=== PATIENT | female | born 1990 | race Caucasian/White ===

== ENCOUNTER 2018-04-13 15:27 | Outpatient (REF) | payer MEDICAID, SELFPAY ==
--- NOTE | 2018-04-13 15:45 | PAPFT_PTH ---
PATIENT: Geno Turner LOC: [facility] U#:[id number] AGE/SX: 27/F ROOM: RE04/13/[address]: Elda Gilman : 1990 BED: DIS: 04/13/2018 SPEC #: [id number] RECD: 04/14/18 12:50 STATUS: KARTIK REJody #: [id number] LAURO: 04/13/18 15:[address]: Elda Gilman DEPT: [facility], [facility] Cytology RECD BY: Alma Wallis Tissues: 1 - CX/ENDOCX FOR PAP SMEARS Procedures: PAP THIN PREP/UVM Screening Comments: [id number]
== END 2018-04-13 15:47 ==
LOC: NCHCN 15:27
PROVIDERS: PCP Nurse Practitioner Family; Visit Provider Nurse Practitioner Family
DX: Z12.4 Encounter for screening for malignant neoplasm of cervix (principal)
CPT/HCPCS: 88142

== ENCOUNTER 2018-06-22 21:21 | Outpatient (REF) | payer MEDICAID, SELFPAY ==
[2018-06-22 22:03] LABS: Abs Immature Grans 0.02 k/cumm (0.0-0.09); Absolute Basophil Count 0.02 k/cumm (0.0-0.2); Absolute Eosinophil Count 0.18 k/cumm (0.0-0.7); Absolute Lymphocyte Count 2.19 k/cumm (1.2-3.4); Absolute Monocyte Count 0.53 k/cumm (0.11-0.7); Basophils % 0.3; Eosinophils % 2.4; HGB 13.2 g/dL (12.0-15.5); Immature Grans % 0.3; Lymphocytes % 29.4; Mean Corpuscular Hemoglobin 29.1 pg (27.0-33.0); Mean Corpuscular Volume 88.3 fL (80-95); Mean Platelet Volume 9.3 fL (8.0-11.0); Monocytes % 7.1; Neutrophils % 60.5; Platelet Count 325 x1000/uL (130-400); RBC 4.53 m/cumm (4.00-5.20); RBC Distribution Width 12.8 % (11.7-14.6); White Blood Cell Count 7.44 k/cumm (4.4-10.8)
[2018-06-22 22:19] LABS: Iron 54 ug/dL (50-175); Total Iron Binding Capacity 366 ug/dL (250-450); Transferrin Sat 15 % (15-50)
[2018-06-22 22:31] LABS: Ferritin 176 ng/mL (8-388)
== END 2018-06-22 21:41 ==
LOC: NCHCN 21:21
PROVIDERS: PCP Nurse Practitioner Family; Visit Provider Nurse Practitioner Family
DX: N93.9 Abnormal uterine and vaginal bleeding, unspecified (principal)
CPT/HCPCS: 82728; 83540; 83550; 85025

== ENCOUNTER 2018-10-14 19:08 | Outpatient (REF) | payer MEDICAID, SELFPAY ==
[2018-10-14 14:08] LABS: ALT 20 U/L (12-78); AST 13 U/L (15-37); Albumin 3.8 g/dL (3.4-5.0); Alkaline Phosphatase 51 U/L (46-116); Anion Gap 11.6 mmol/L (3-11); BUN 11 mg/dL (7-18); Bilirubin, Total 0.8 mg/dL (0.2-1.0); CO2 25.4 mmol/L (21.0-32.0); CREATININE 0.66 mg/dL (0.55-1.02); Calcium 9.1 mg/dL (8.5-10.1); Chloride 102 mmol/L (98-107); Cholesterol 155 mg/dL (50-200); Glucose 85 mg/dL (70-100); HDL Cholesterol 45 mg/dL (40-60); LDL CHOLESTEROL 89 mg/dL (<100); Sodium 139 mmol/L (136-145); Total Protein 7.2 g/dL (6.4-8.2); Triglyceride 149 mg/dL (30-150)
[2018-10-14 14:22] LABS: Hemoglobin A1C 5.2 % (4.5-6.2)
== END 2018-10-14 19:28 ==
LOC: NCHCN 19:08
PROVIDERS: PCP Nurse Practitioner Family; Visit Provider Family Medicine
DX: Z00.00 Encounter for general adult medical examination without abnormal findings (principal); L83 Acanthosis nigricans
CPT/HCPCS: 80053; 80061; 83721; 83036

== ENCOUNTER 2018-11-11 12:01 | Emergency (ER) | payer MEDICAID, SELFPAY ==
[2018-11-11 12:05] VITALS: BP 125/78; PULSE 85; RESP 14; TEMP 37.1; O2SAT 95
--- NOTE | 2018-11-11 12:17 | W.ED.GENAD ---
Discharge Plan Disposition Patient Disposition: HOME Condition: Fair Discharge Details Chief Complaint: Laceration Clinical Impression: Laceration of thumb, right Primary Care Provider: Elda Gilman ED Provider: Rosaura Booth Discharge Instructions Instructions: Laceration (ED) Additional Instructions: Keep wound clean, dry, covered. Wash with running water and soap daily. Please monitor for signs of infection with redness, warmth, drainage, increased pain, fever/chills. These arise please seek care urgently once again. Continue with splint to help with any discomfort. Follow-up with primary care as needed. Stand Alone Forms: Work Release Referrals: Elda Gilman [Primary Care Provider] - Discharge Data Discharge Date/Time-TO BE ENTERED AT DEPARTURE: 11/11/18 13:22 Medical Decision Making Patient is 28-year-old left-hand dominant female presenting today with chief complaint of laceration to the right thumb. She reports that this morning while cutting cooked meat, she slipped with her knife and cut the ulnar side of the right thumb. Wound is approximately 5 mm in length. It extends into the nail. Not actively bleeding. Denies other injury at the time of the incident. He was seen by primary care this morning her primary was concerned for possible bony involvement. Patient does state that she cut herself with the belly of the blade. Will obtain x-ray to evaluate for possible bony involvement. Tetanus is up-to-date, this was checked by primary care this time. Spoke with radiologist who was questioning if there may be a small defect along the radial side of the thumb but this does not correlate clinically as the defects on the ulnar side. He reported that he did have a low suspicion for fracture and that with this clinical correlation fracture was noted on the x-ray. Discussed these findings with the patient HPI General Mode of arrival: ambulatory. Date/Time Provider Initiated Documentation: 11/11/18 12:17. Limitations to Documentation: no limitations. Information obtained by: patient, family and RN notes reviewed. History of Present Illness 28 year old F presents to the emergency department with the chief complaint of laceration right thumb, described as mild, with intensity rated at 1. Quality is described as aching, and is localized to the right and upper extremity. Patient reports no radiation. Patient started experiencing this hour(s) and it has been constant. No relieving factors improve symptom(s), No exacerbating factors reported . Patient notes no other symptoms.. Patient did receive the following treatments prior to arrival, none Related Data Allergies Allergy/AdvReac Type Severity Reaction Status Date / Time antiarthritic combination AdvReac Unknown Unverified 11/11/18 12:10 no.1 [From [place]] camphor [From [place]] AdvReac Unknown Unverified 11/11/18 12:10 human papillomavirus AdvReac Unknown Unverified 11/11/18 12:10 vaccine, bival menthol [From [place]] AdvReac Unknown Unverified 11/11/18 12:10 methyl salicylate AdvReac Unknown Unverified 11/11/18 12:10 [From [place]] dove soap AdvReac Unknown Uncoded 11/11/18 12:11 General Stated Complaint: Laceration KAVITA: 3 Review of Systems Constitutional Reports as per HPI, Denies chills and Denies fever(s) Musculoskeletal Reports as per HPI Integumentary/Breasts Reports as per HPI Neurologic Reports as per HPI, Denies sensory deficit and Denies paresthesias PFS Social History Smoking/Tobacco Use Status: Never Drug use: Never Substance use type: does not use Do you feel safe at home: Yes Do you feel safe in your relationship?: Yes Exam Const General: cooperative, healthy appearing, comfortable, no acute distress and well developed Nutritional Appearance: average body habitus and well nourished Orientation: alert and awake Resp Effort & Inspection: normal respiratory effort, able to speak in complete sentences and no respiratory distress Cardio Rate: regular rate Rhythm: regular rhythm Skin Trauma: laceration (5mm ulnar side of thumb, wound edges togeth) Neuro General: alert and awake Cognition: normal cognition Speech: speech normal Gait: normal gait Sensory Exam: no sensory deficits noted Psych Appearance: grossly normal and well kempt Mental Status: mental status grossly normal Speech and Movement: speech and movement normal Course Vital Signs Temperature 37.1 C 11/11/18 12:05 Pulse 85 11/11/18 12:05 Respiratory Rate 14 11/11/18 12:05 Blood Pressure 125/78 11/11/18 12:05 Pulse Oximetry 95 11/11/18 12:05 Temperature 37.1 C 11/11/18 12:05 Temperature Source Skin 11/11/18 12:05 Pulse 85 11/11/18 12:05 Respiratory Rate 14 11/11/18 12:05 Respiratory Effort 11/11/18 12:11 Blood Pressure 125/78 11/11/18 12:05 Blood Pressure Position Sitting 11/11/18 12:05 Pulse Oximetry 95 11/11/18 12:05 Oxygen Delivery Method Room Air 11/11/18 12:05 Oxygen Flow Rate 0 11/11/18 12:05 Pain Level 1 11/11/18 12:05
--- NOTE | 2018-11-11 12:25 | DI.RAD_ITS ---
SYMPTOMS/DIAGNOSIS: LACERATION DISTAL THUMB RIGHT THUMB: The patient reportedly has a thumb laceration. No fracture is identified.
[2018-11-11] MEDS: Acetaminophen 500 MG TAB 1000 MG PO (12:34)
[2018-11-11] MEDS: Ibuprofen 600 MG TAB PO (12:34)
--- NOTE | 2018-11-11 12:41 | ED.GENADUL_ITS ---
Discharge Plan Disposition Patient Disposition: HOME Condition: Fair Discharge Details Chief Complaint: Laceration Clinical Impression: Laceration of thumb, right Primary Care Provider: Elda Gilman ED Provider: Rosaura Booth Discharge Instructions Instructions: Laceration (ED) Additional Instructions: Keep wound clean, dry, covered. Wash with running water and soap daily. Please monitor for signs of infection with redness, warmth, drainage, increased pain, fever/chills. These arise please seek care urgently once again. Continue with splint to help with any discomfort. Follow-up with primary care as needed. Stand Alone Forms: Work Release Referrals: Elda Gilman [Primary Care Provider] - Discharge Data Discharge Date/Time-TO BE ENTERED AT DEPARTURE: 11/11/18 13:22 Medical Decision Making Patient is 28-year-old left-hand dominant female presenting today with chief complaint of laceration to the right thumb. She reports that this morning while cutting cooked meat, she slipped with her knife and cut the ulnar side of the right thumb. Wound is approximately 5 mm in length. It extends into the nail. Not actively bleeding. Denies other injury at the time of the incident. He was seen by primary care this morning her primary was concerned for possible bony involvement. Patient does state that she cut herself with the belly of the blade. Will obtain x-ray to evaluate for possible bony involvement. Tetanus is up-to-date, this was checked by primary care this time. Spoke with radiologist who was questioning if there may be a small defect along the radial side of the thumb but this does not correlate clinically as the defects on the ulnar side. He reported that he did have a low suspicion for fracture and that with this clinical correlation fracture was noted on the x- ray. Discussed these findings with the patient HPI General Mode of arrival: ambulatory . Date/Time Provider Initiated Documentation: 11/11/18 12:17 . Limitations to Documentation: no limitations . Information obtained by: patient, family and RN notes reviewed . History of Present Illness 28 year old F presents to the emergency department with the chief complaint of laceration right thumb, described as mild, with intensity rated at 1. Quality is described as aching, and is localized to the right and upper extremity. Patient reports no radiation. Patient started experiencing this hour(s) and it has been constant. No relieving factors improve symptom(s), No exacerbating factors reported . Patient notes no other symptoms.. Patient did receive the following treatments prior to arrival, none Related Data Allergies Allergy/AdvReac Type Severity Reaction Status Date / Time antiarthritic combination AdvReac Unknown Unverified 11/11/18 12:10 no.1 [From [place]] camphor [From [place]] AdvReac Unknown Unverified 11/11/18 12:10 human papillomavirus AdvReac Unknown Unverified 11/11/18 12:10 vaccine, bival menthol [From [place]] AdvReac Unknown Unverified 11/11/18 12:10 methyl salicylate AdvReac Unknown Unverified 11/11/18 12:10 [From [place]] dove soap AdvReac Unknown Uncoded 11/11/18 12:11 General Stated Complaint: Laceration KAVITA: 3 Review of Systems Constitutional Reports as per HPI, Denies chills and Denies fever(s) Musculoskeletal Reports as per HPI Integumentary/Breasts Reports as per HPI Neurologic Reports as per HPI, Denies sensory deficit and Denies paresthesias PFS Social History Smoking/Tobacco Use Status: Never Drug use: Never Substance use type: does not use Do you feel safe at home: Yes Do you feel safe in your relationship?: Yes Exam Const General: cooperative, healthy appearing, comfortable, no acute distress and well developed Nutritional Appearance: average body habitus and well nourished Orientation: alert and awake Resp Effort & Inspection: normal respiratory effort, able to speak in complete sentences and no respiratory distress Cardio Rate: regular rate Rhythm: regular rhythm Skin Trauma: laceration (5mm ulnar side of thumb, wound edges togeth) Neuro General: alert and awake Cognition: normal cognition Speech: speech normal Gait: normal gait Sensory Exam: no sensory deficits noted Psych Appearance: grossly normal and well kempt Mental Status: mental status grossly normal Speech and Movement: speech and movement normal Course Vital Signs Temperature 37.1 C 11/11/18 12:05 Pulse 85 11/11/18 12:05 Respiratory Rate 14 11/11/18 12:05 Blood Pressure 125/78 11/11/18 12:05 Pulse Oximetry 95 11/11/18 12:05 Temperature 37.1 C 11/11/18 12:05 Temperature Source Skin 11/11/18 12:05 Pulse 85 11/11/18 12:05 Respiratory Rate 14 11/11/18 12:05 Respiratory Effort 11/11/18 12:11 Blood Pressure 125/78 11/11/18 12:05 Blood Pressure Position Sitting 11/11/18 12:05 Pulse Oximetry 95 11/11/18 12:05 Oxygen Delivery Method Room Air 11/11/18 12:05 Oxygen Flow Rate 0 11/11/18 12:05 Pain Level 1 11/11/18 12:05
[2018-11-11 13:43] VITALS: BP 125/78; PULSE 85; RESP 14; TEMP 37.1; O2SAT 95
== END 2018-11-11 13:22 | disposition home or self-care (01) ==
PROVIDERS: Emergency Provider Physician Assistant; PCP Nurse Practitioner Family
DX: S61.121A Laceration with foreign body of right thumb with damage to nail, initial encounter (principal); W26.0XXA Contact with knife, initial encounter
CPT/HCPCS: 81025; 99283; 73140; 99282

== ENCOUNTER 2020-11-22 14:11 | Outpatient (CLI) | payer MEDICAID, SELFPAY ==
--- NOTE | 2020-11-22 | DI.RAD_ITS ---
EXAM: XR FOOT RT COMPLETE CLINICAL HISTORY: RT FOOT PAIN M79.671. TECHNIQUE: 2D digital imaging was performed. COMPARISON: No exams were available for comparison FINDINGS: There is no evidence of fracture or diastasis of the Lisfranc joint. Bipartite medial sesamoid is no julianna subjacent to the great toe metatarsal head. No osseous lesions nor erosions. Bone density is no rmal. There is a small inferior calcaneal spur. IMPRESSION: DATA REPOSITORY: RADIATION DOSE DELIVERED:
== END 2020-11-22 14:31 ==
PROVIDERS: PCP Nurse Practitioner Family; Visit Provider Family Medicine
DX: M79.671 Pain in right foot (principal); M77.31 Calcaneal spur, right foot
CPT/HCPCS: 73630

== ENCOUNTER 2021-08-12 01:49 | Outpatient (CLI) | payer MEDICAID, SELFPAY ==
--- NOTE | 2021-08-12 | DI.RAD_ITS ---
Exam(s) XR KNEE RT 3V AP,LAT,SAHIL EXAM: XR KNEE RT 3V AP,LAT,SAHIL CLINICAL HISTORY: RT KNEE PAIN, M25.561. TECHNIQUE: 2D digital imaging was performed. COMPARISON: No exams were available for comparison FINDINGS: BONES: No acute fracture is present. No bony destructive lesion is seen. JOINTS: The knee is normally aligned. No joint effusion is seen. Joint spaces are well maintained. N o significant degenerative changes. SOFT TISSUE: Normal. IMPRESSION: Unremarkable radiographs of the right knee. DATA REPOSITORY: RADIATION DOSE DELIVERED:
--- NOTE | 2021-08-12 | DI.RAD_ITS ---
Exam(s) XR ELBOW LT COMPLETE EXAM: XR ELBOW LT COMPLETE CLINICAL HISTORY: LT ELBOW PAIN, M25.522. TECHNIQUE: 2D digital imaging was performed. COMPARISON: No exams were available for comparison FINDINGS: BONES: No acute fracture is present. No bony destructive lesion is seen. JOINTS: The elbow is normally aligned. No joint effusion is seen. No joint space calcifications. No significant degenerative changes. SOFT TISSUE: Normal. IMPRESSION: Unremarkable radiographs of the left elbow. DATA REPOSITORY: RADIATION DOSE DELIVERED:
== END 2021-08-12 02:09 ==
PROVIDERS: PCP Nurse Practitioner Family; Visit Provider Family Medicine
DX: M25.561 Pain in right knee (principal); M25.522 Pain in left elbow
CPT/HCPCS: 73562; 73080

== ENCOUNTER 2024-09-12 09:19 | Emergency (ER) | payer BC, MEDICAID, SELFPAY ==
--- NOTE | 2024-09-12 09:15 | RT.EKG_ITS ---
APPROVED REPORT Exam: Resting ECG Reason for Exam: palpitations Patient Location: E HR:68 bpm ECG Measurements Heart Rate 68 AXIS FL 149 P 29 QRSd 93 QRS 13 QT 373 T 2 QTc 398 Conclusion Sinus rhythm...normal P axis, V-rate 60- 99 No STEMI
--- NOTE | 2024-09-12 09:30 | DI.RAD_ITS ---
Exam(s) XR CHEST 2V PA LATERAL EXAM: XR CHEST 2V PA LATERAL CLINICAL HISTORY: Chest pain. TECHNIQUE: 2D digital imaging was performed. COMPARISON: No exams were available for comparison FINDINGS: 2 views: Heart size is upper normal. The mediastinum is not widened. Lungs are clear. No infiltrates nor pleural effusions. IMPRESSION: No acute pulmonary findings. DATA REPOSITORY: RADIATION DOSE DELIVERED:
--- NOTE | 2024-09-12 09:30 | ED.GENADUL_ITS ---
Discharge Plan Disposition Patient Disposition: Home Discharge Details Clinical Impression: Palpitations Primary Care Provider: Elda Gilman ED Provider: Jett Martinez Home Meds and New Rx's Prescriptions: No Action No Known Home Meds Discharge Instructions Additional Instructions: You were seen in the emergency department for your palpitations. Your blood work shows no sign of a heart attack. Your labs show that your kidneys are working well. Please return to the emergency department as we discussed if you develop worsening shortness of breath if you pass out or if you have any other concerns. Otherwise please follow closely with your primary care provider next week. HPI General Date/Time Provider Initiated Documentation: 09/12/24 09:27 . HPI Narrative: MDM This is an overall very well-appearing normothermic and not tachycardic 84-year-old female with reassuring biomarkers not consistent with ACS for which patient will receive an empiric trial of discharge with expectant outpatient management given lack of risk factors.Reassuring troponin. Given duration of time since patient's symptoms began and undetectable troponin no indication for repeat troponin. I considered PE however the patient is PERC negative so I did not send a D-dimer. No pain or proportion to suggest necrotizing soft tissue infection. No tearing quality to suggest aortic dissection. No cough to suggest pneumonia. X-ray showed no infiltrates. No rash to chest to suggest zoster. No history of recent emesis to suggest increased risk for esophageal rupture. Not hypotensive nor dialysis patient to suggest increased risk for tamponade. We discussed that she may consider following up with her primary care provider and inquiring about the possibility of a Holter monitor. We also discussed that she should return to the emergency department if you develop syncope. Patient I discussed that she had elevated blood pressure. I advised PCP follow-up. She also should return to emergency department if she developed any chest pain associated shortness of breath or diaphoresis. HEART SCORE Chest pain Diagnostic Protocol: [-History/Physical/Gestalt: Slightly Suspicious (0)] [-EKG: Normal and/or unchanged from prior EKG (0)] [-AGE: less than 45 (0)] [- RISK FACTORS: 1 - 2 risk factors (+1)] [-TROPONIN: <= normal limit (0)] - TOTAL SCORE: 1 - Risk Factors: DM, current or recent smoker, HTN, HLD, family hx of CAD, obesity - INTERPRETATION: With a total score of 3 or less, risk of major cardiac event within six weeks 1.7%, likely lower with two negative troponins. [I explained to the patient that the risk of subsequent major cardiac event within 1 month is not 0, however risk predicted to be less than 2%. Patient verbalized understanding, accepts this risk and shared and the decision for discharge with PCP follow-up for further evaluation and management. They understand to return to the ED immediately with any worsening symptoms, new symptoms or other concerns.] Diagnostic interpretations performed by me: Per my independent interpretation chest x-ray shows: No acute cardiopulmonary process Per my independent interpretation EKG shows: Narrow complex normal sinus rhythm at a rate of 68. Normal axis. Intervals within normal limits. No acute injury pattern. HPI This is a 34-year-old female elevated BMI arrived emerged part via private vehicle in setting of palpitations and chest heaviness. She reports that her sy mptoms began yesterday afternoon. They improved overnight but this morning recurred while at work. She says that she is having heaviness in her chest and difficulty breathing. She never had a PE nor DVT. She denies any trauma nausea or vomiting. She denies routine tobacco. She occasionally drinks ethanol. No family history of premature coronary artery disease. Patient denies personal history of coronary artery disease diabetes hypertension hyperlipidemia. She is not on any oral contraceptive pills and never had a PE nor DVT. She describes a central chest heaviness Exam General: Well-appearing in no acute distress speaking in complete sentences. Head: Normocephalic, atraumatic. Eye: Extraocular eye movements intact. No conjunctival injection. No scleral icterus. Ear, nose, mouth, throat: Grossly normal inspection. Normal voice, handling secretions normally. Neck: Trachea midline. Cardiovascular: Well-perfused distal extremities.Regular rate and rhythm. Respiratory: Nonlabored respiration. Clear lungs bilaterally. Gastrointestinal: Nondistended abdomen. Musculoskeletal: No edema. Moving all 4 extremities spontaneously. Skin: Normal for age and race, grossly normal temperature and turgor. No acute rash. Neurologic: Alert and appropriate, no apparent acute deficits. Psychiatric: Mood and manner are appropriate. Grooming and personal hygiene are appropriate. Related Data Home Medications ?Medication ?Instructions ?Recorded ?Confirmed Unknown [No Known Home Meds] 09/12/24 09/12/24 Allergies Allergy/AdvReac Type Severity Reaction Status Date / Time antiarthritic combination AdvReac Unknown Unknown Unverified 09/12/24 09:31 no.1 (From [place]) camphor (From [place]) AdvReac Unknown Unknown Unverified 09/12/24 09:31 human papillomavirus AdvReac Unknown Unknown Unverified 09/12/24 09:31 vaccine, bival menthol (From [place]) AdvReac Unknown Unknown Unverified 09/12/24 09:31 methyl salicylate (From AdvReac Unknown Unknown Unverified 09/12/24 09:31 [place]) dove soap AdvReac Unknown Unknown Uncoded 09/12/24 09:31 General KAVITA: 3 Medical Decision Making Quality:SDOH Health Related Social Needs: No Data to Display PFSH All Active Problems (Updated 09/12/24 @ 11:11 by Jett Martinez MD) Palpitations (Acute) Social History Smoking/Tobacco Use Status: Never Smoking risk assessment performed?: Yes Alcohol Intake: current Alcohol Intake frequency: holidays/special occasions only Drug use: Never Substance use type: does not use Housing: house Do you feel safe at home: Yes Do you feel safe in your relationship?: Yes
[2024-09-12 09:32] VITALS: BP 177/75; PULSE 72; RESP 18; TEMP 37.1; O2SAT 99
[2024-09-12 10:02] LABS: Abs Immature Grans 0.02 10^3/uL (0.0-0.06); Absolute Basophil Count 0.04 10^3/uL (0.0-0.2); Absolute Eosinophil Count 0.12 10^3/uL (0.0-0.7); Absolute Lymphocyte Count 1.87 10^3/uL (1.2-3.4); Absolute Neutrophil Count 4.99 10^3/uL (1.2-6.7); Basophils % 0.5 %; Eosinophils % 1.6 %; HCT 41.6 % (36.0-46.0); HGB 13.9 g/dL (11.2-15.7); Immature Grans % 0.3 %; Lymphocytes % 24.5 %; MCH 29.8 pg (27.0-33.0); MCHC 33.4 % (32.0-36.0); MCV 89 fL (80-95); MPV 9.2 fL (8.0-11.0); Monocytes % 7.9 %; Neutrophils % 65.2 %; Platelet Count 314 10^3/uL (130-400); RBC 4.67 10^6/uL (3.93-5.22); RDW 12.5 % (11.7-14.6); RDW-SD 40.4 fL; WBC 7.64 10^3/uL (4.4-10.8)
[2024-09-12 10:12] LABS: Prothrombin Time 10.4 sec (9.1-11.1)
[2024-09-12 10:21] LABS: HCG Qual (Serum) Negative
[2024-09-12 11:01] LABS: ALT 31 U/L (14-59); AST 16 U/L (15-37); Albumin 3.8 g/dL (3.4-5.0); Alkaline Phosphatase 63 U/L (46-116); Anion Gap 7.9 mmol/L (3-11); BUN 14 mg/dL (7-18); Bilirubin, Total 0.83 mg/dL (0.2-1.0); CO2 25.1 mmol/L (21.0-32.0); CREATININE 0.6 mg/dL (0.55-1.02); Calcium 8.6 mg/dL (8.5-10.1); Chloride 108 mmol/L (98-107); Estimated GFR 122.23 (mL/min/1.73m2); Glucose 99 mg/dL (74-106); Lipase 34 U/L (<78); Potassium 3.7 mmol/L (3.5-5.1); Sodium 141 mmol/L (136-145); TSH (W/Ref FT4) 2.06 uIU/mL (0.36-3.74); Total Protein 7.2 g/dL (6.4-8.2)
[2024-09-12 11:03] LABS: Troponin I < 4 ng/L (<or=51)
[2024-09-12 11:26] VITALS: BP 177/75; PULSE 72; RESP 18; TEMP 37.1; O2SAT 99
== END 2024-09-12 11:34 | disposition home or self-care (01) ==
PROVIDERS: Emergency Provider Emergency Medicine; PCP Nurse Practitioner Family
DX: R00.2 Palpitations (principal)
CPT/HCPCS: 80053; 83690; 93005; 99285; 71046; 84443; 84484; 84703; 85025; 85610; 93010; 99284

== ENCOUNTER 2024-09-23 13:21 | Outpatient (CLI) | payer BC, MEDICAID, SELFPAY | END 2024-09-23 13:22 | disposition home or self-care (01) | PROVIDERS: PCP Nurse Practitioner Family; Visit Provider Family Medicine | DX: R07.9 Chest pain, unspecified (principal) | CPT/HCPCS: 93246 ==

== ENCOUNTER 2024-10-18 06:58 | Outpatient (CLI) | payer BC, MEDICAID, SELFPAY ==
--- NOTE | 2024-10-18 11:57 | W.CARDEVENT ---
Date of service: 10/18/24 Time of Service: 11:57 Cardiac Event Recorder Referring Provider:: Irving Leong Indications:: Chest pain Cardiac Event Note: This is a cardiac event monitor. Patient was monitored for 13 days and 8 hours. Rhythm throughout was sinus with an average heart rate of 79. Minimum was 50, maximum 141. There were very rare isolated ventricular ectopic beats. There were rare isolated atrial premature beats. There were several runs of premature atrial contractions. The longest of these was 6 beats. Most were 2-4 beats in length. There was no atrial fibrillation, no high-grade AV block, no pauses greater than 3 seconds. Reported symptoms correlated with sinus rhythm in the 70s, rarely to atrial and ventricular ectopics
== END 2024-10-18 06:59 | disposition home or self-care (01) ==
LOC: CARDOPNVT 06:58
PROVIDERS: PCP Nurse Practitioner Family; Visit Provider Internal Medicine Cardiovascular Disease
DX: R07.9 Chest pain, unspecified (principal); I49.1 Atrial premature depolarization